=== PATIENT | male | born 1985 | race Two or more races ===

== ENCOUNTER 2017-09-29 13:02 | Emergency (ER) | payer SELFPAY ==
[~2017-09-29] VITALS: Ht 182.9 cm; Wt 86.0 kg
[2017-09-29 16:59] VITALS: BP 109/85
[2017-09-29] MEDS ORDERED: IBUPROFEN 800MG TABLET PO ONE (17:00)
== END 2017-09-29 17:09 | disposition home or self-care (01) ==
LOC: ER 13:02
DX: S62.316A Displaced fracture of base of fifth metacarpal bone, right hand, initial encounter for closed fracture (principal); V48.4XXA Person boarding or alighting a car injured in noncollision transport accident, initial encounter; Y93.89 Activity, other specified; Y92.89 Other specified places as the place of occurrence of the external cause
CPT/HCPCS: 29130; 73130; 99284